=== PATIENT | male | born 1970 | race Caucasian/White ===

== ENCOUNTER 2019-03-19 18:34 | Emergency (ER) | payer OTHER ==
[~2019-03-19] VITALS: Ht 175.3 cm; Wt 133.8 kg
[2019-03-19] MEDS ORDERED: CELEXA 10 MG TA10 M1 PO (18:47)
[2019-03-19] MEDS ORDERED: LEVO-T100 MCG PO (18:47)
[2019-03-19] MEDS ORDERED: TYLENOL WITH CO1 TA1 PO (20:13)
[2019-03-19 20:29] VITALS: BP 123/75
== END 2019-03-19 20:30 | disposition home or self-care (01) ==
LOC: M.ERS 18:34
DX: S62.397A Other fracture of fifth metacarpal bone, left hand, initial encounter for closed fracture (principal); J45.909 Unspecified asthma, uncomplicated; Z88.5 Allergy status to narcotic agent; W01.0XXA Fall on same level from slipping, tripping and stumbling without subsequent striking against object, initial encounter; Y93.89 Activity, other specified; Y92.89 Other specified places as the place of occurrence of the external cause; Y99.8 Other external cause status

== ENCOUNTER → 2019-04-02 | Outpatient (CLI) | payer OTHER ==
[~2019-04-02] MED LIST: CELEXA 10 MG TA10 M1 PO; LEVO-T100 MCG PO; TYLENOL WITH CO1 TA1 PO
== END ==
LOC: M.MRI 15:08 → M.RAD 15:08
DX: S62.307A Unspecified fracture of fifth metacarpal bone, left hand, initial encounter for closed fracture (principal); S62.92XA Unspecified fracture of left hand, initial encounter for closed fracture; S83.242A Other tear of medial meniscus, current injury, left knee, initial encounter; X58.XXXA Exposure to other specified factors, initial encounter; Y93.89 Activity, other specified; Y92.89 Other specified places as the place of occurrence of the external cause; Y99.8 Other external cause status

== ENCOUNTER 2020-11-05 21:32 | Emergency (ER) | payer OTHER ==
[~2020-11-05] VITALS: Ht 175.3 cm; Wt 127.0 kg
[2020-11-05 22:38] LABS: HEMOGLOBIN 14.8 gm/dL (14.0-18.0); MCH 29.9 pg (26.0-34.0); MCHC 32.9 g/dL (28.0-37.0); MPV 8.4 fl. (7.2-11.1); NUCLEATED RBCS 0 /100WBC; PLATELET COUNT* 264 thou/uL (150-400); RBC 4.94 mil/uL (4.50-6.00); RDW-CV 13.7 % (10.5-14.5); WBC 15.3 thou/uL (4.0-11.0)
[2020-11-05 22:47] LABS: CREATININE 1.3 mg/dL (0.6-1.3)
[2020-11-05 22:51] LABS: ALBUMIN 4.6 g/dL (3.4-5.0); TOTAL BILIRUBIN 0.9 mg/dL (<0.1-1.0); TOTAL PROTEIN 7.8 g/dL (6.4-8.2)
[2020-11-05 23:27] LABS: ABSOLUTE BASOPHILS 0.2 thou/uL (0.0-0.2); ABSOLUTE EOSINOPHILS 0.2 thou/uL (0.0-0.7); ABSOLUTE LYMPHOCYTES 1.1 thou/uL (0.8-5.3); ABSOLUTE MONOCYTES 1.1 thou/uL (0.0-1.2); ABSOLUTE NEUTROPHILS 12.9 thou/uL (1.6-8.1); ANISOCYTOSIS Occasional; PLATELET ESTIMATE ADEQUATE; TOXIC GRANULATION 1+
[2020-11-06 02:15] VITALS: BP 130/70
--- NOTE | 2020-11-06 14:24 | EKG ---
[place] [address] ELECTROCARDIOGRAM REPORT Name: NICOLAS GAMEZ Room: [facility]#: [id number] Admission: 11/05/20 Attend Phys: Discharge: 11/06/20 Date of : 66 Date of Service: 11/05/202132 Report #: [id number] THIS REPORT FOR: //name// [facility] ED Test Date: 2020-11-05 Test Time: 21:33:08 Pat Name: NICOLAS TILLMAND Department: Room: Gender: Resourcing Consultant: : [id number] Requested By: Lizet Beckham Order Number: [id number] MD: Nicolas Lombardo Measurements Intervals [place] Rate: 89 P: 21 NM: 149 QRS: 46 QRSD: 113 T: 30 QT: 390 QTc: 475 Interpretive Statements Sinus rhythm Borderline intraventricular conduction delay Baseline wander in lead(s) V3 No previous ECG available for comparison Electronically Signed On 11-06-2020 14:24:33 CDT by Nicolas Lombardo [email or web address] <ELECTRONICALLY SIGNED> By: Nicolas Lombardo MD, [facility] 11/06/20 1424 32 32 Nicolas Lombardo MD, [facility] /EPI
== END 2020-11-06 02:15 | disposition home or self-care (01) ==
LOC: M.ERS 21:32
PROVIDERS: Personal Emergency Response Attendant
DX: R07.89 Other chest pain (principal); M79.602 Pain in left arm; R11.0 Nausea; F41.9 Anxiety disorder, unspecified; J45.909 Unspecified asthma, uncomplicated; Z98.890 Other specified postprocedural states; Z79.899 Other long term (current) drug therapy; Z88.5 Allergy status to narcotic agent; Z88.6 Allergy status to analgesic agent